=== PATIENT | female | born 1950 | race Two or more races ===

== ENCOUNTER 2016-07-24 20:06 | Inpatient (IN) | payer MEDICARE, MEDICAID ==
[~2016-07-24] VITALS: Ht 160 cm; Wt 68.1 kg
[2016-07-25] VITALS: BP 127/89
[2016-07-25] MEDS ORDERED: MAGNESIUM HYDROXIDE 30 ML UDC PO PRN (00:30)
[2016-07-25] MEDS ORDERED: MAG HYDROX/AL HYDROX/SIMETH 30 ML UDC PO PRN (00:30)
[2016-07-25] MEDS ORDERED: ACETAMINOPHEN 325 MG TABLET PO PRN (00:30)
--- NOTE | 2016-07-25 00:30 | NUR ---
GPS BARKER OPERATOR NOTE: ADMISSION OF A 65YO FEMALE FROM [facility]. PATIENT WAS BROUGHT IN THE UNIT, VIA GURNEY ESCORTED BY EMT STAFF. PATIENT ON 5150 HOLD FOR GD. PER HOLD PATIENT WAS CONFUSED, WITH STORY FRAGMENTED. PATIENT WENT TO ER WITH NO SHOES AND STATED HER BELONGINGS WERE STOLEN FROM HER. THE HOLD ALSO STATES THAT PATIENT IS TANGENTIAL AND THAT SHE HAS MENTAL ILLNESS AND HAS NOT BEEN ON MEDICATIONS SINCE MONDAY. PATIENT IS RAMBLING AND IS UNABLE TO NAVIGATE SAFELY WITHOUT ASSISTANCE IN THE COMMUNITY. PATIENT HAS NO FAMILY OR PERSON TO NOTIFY FOR THE ADMISSION. PATIENT USHERED INTO THE ROOM. PATIENT OBSERVED TO BE ALERT AND ORIENTED X3 WITH NOTED EPISODES OF CONFUSION, UNKEMPT, DISORGANIZED, DISHEVELED, UNTIDY, HYPERVERBAL, ATTENTION SEEKING,TALKS TO SELF AT TIMES, NEEDS REDIRECTION MOST OF THE TIME. REALITY ORIENTATION DONE. VITAL SIGNS CHECKED AND RECORDED. PATIENT IS ABLE TO WALK ON HER OWN. ORIENTATION TO UNIT, STAFF AND CARE PLAN DONE. BELONGINGS AND CONTRABAND CHECKED AND SUBMITTED FOR SAFEKEEPING. SKIN AND BODY ASSESSMENT DONE WITH CARL BAIRES. PICTURES TAKEN AND PLACED IN THE CHART. CHANGED PATIENT INTO A NEW GOWN. PROVIDED PATIENT WITH TOILETRIES AND PERSONAL STUFF NEEDS. SNACKS AND ORAL FLUIDS PROVIDED. Q15 MIN CHECKS INITIATED PER UNIT PROTOCOL. DR. MANDUJANO AND DR. MASON INFORMED OF THE SAID ADMISSION. MED RECON FOR MEDICAL MEDS DONE BY DR. MASON. WILL MONITOR PATIENT FOR MOOD, SAFETY AND BEHAVIOR. WILL ENDORSE TO DAY SHIFT NURSE.
[2016-07-25] MEDS ORDERED: OLAN10TA3 PO (00:55)
[2016-07-25] MEDS ORDERED: LOSA50TA21 PO (00:55)
[2016-07-25 08:00] VITALS: BP 148/84
[2016-07-25] MEDS: LOSARTAN POTASSIUM 50 MG TABLET PO SCH (08:51)
[2016-07-25] MEDS: clonazePAM 0.5 MG TABLET PO PRN (13:04)
--- NOTE | 2016-07-25 13:07 | NUR ---
GPS RN: PATIENT IS INCREASINGLY ANXIOUS, RESTLESS, HYPERVERBAL, WITH EPISODES OF, CONFUSED, HARD TO REDIRECT. ADMINISTERED CLONAZEPAM 0.5MG PO ORDERED. VS STABLE, CONTINUE TO MONITOR.
[2016-07-25 16:00] VITALS: BP 134/82
[2016-07-25 20:15] VITALS: BP 150/90
[2016-07-25] MEDS: OLANZAPINE 10 MG TABLET PO SCH (21:53)
--- NOTE | 2016-07-26 00:30 | NUR ---
GPS RN: PATIENT COMPLAINED OF NAUSEA AND VOMITING PATIENT PLACED ON NPO INITIALLY. CLOSE OBSERVATION ON GI STATUS STARTED. WILL CONTINUE TO MONITOR PATIENT.
--- NOTE | 2016-07-26 03:09 | NUR ---
GPS RN: PATIENT COMPLAINED OF NAUSEA AND VOMITING. NO PAIN, NO ABDOMINAL TENDERNESS THIS TIME OF ASSESSMENT. DR. MASON PAGED AT 0306AM. 0306AM- DR. MASON CALLED BACK WITH ORDERS TO GIVE ZOFRAN 4MG PO Q4H PRN FOR NAUSEA AND VOMITING. ORDER NOTED AND CARRIED OUT. WILL MONITOR PATIENT. WILL ENDORSE PATIENT TO DAY SHIFT NURSE.
[2016-07-26] MEDS ORDERED: ONDANSETRON 4 MG TAB.RAPDIS ONE (03:19)
[2016-07-26] MEDS: ONDANSETRON 4 MG TAB.RAPDIS PO PRN (03:27)
[2016-07-26 08:00] VITALS: BP 103/64
[2016-07-26] MEDS: LOSARTAN POTASSIUM 50 MG TABLET PO SCH (10:06)
--- NOTE | 2016-07-26 12:11 | NUR ---
Initial discharge plan: Pt. states she [address] at [address] [place] [id number] and wants to return when she is discharged. SW will follow up with MD and will attempt to find contact information of support to verify that discharge plan is safe. SW will help form safe and proper discharge.
[2016-07-26 16:00] VITALS: BP 111/73
[2016-07-26 17:08] LABS: BASOPHILS % (AUTO) 0.4 % (0.0-2.0); HEMATOCRIT 36 % (33-45); HEMOGLOBIN 11.8 g/dL (11.5-14.8); LYMPHOCYTES # (AUTO) 1.6 /CMM (0.8-4.8); LYMPHOCYTES % (AUTO) 35.6 % (20.0-44.0); MEAN CORPUSCULAR HEMOGLOBIN 26 PG (26.0-33.0); MEAN CORPUSCULAR HGB CONC 33 g/dl (31.0-36.0); MEAN CORPUSCULAR VOLUME 80 fL (82-100); MONOCYTES # (AUTO) 0.3 /CMM (0.1-1.30); MONOCYTES % (AUTO) 6.8 % (2.0-12.0); NEUTROPHILS # (AUTO) 2.6 /CMM (1.8-8.9); NEUTROPHILS % (AUTO) 57.2 % (43.0-81.0); PLATELET COUNT (AUTO) 223 /CMM (150-450); RDW COEFFICIENT OF VARIATION 13.4 (11.5-15.0); RED BLOOD CELL COUNT(AUTO) 4.53 MIL/uL (4.0-5.2); WHITE BLOOD COUNT (AUTO) 4.6 K/uL (4.3-11.0)
[2016-07-26 17:18] LABS: CALCIUM, SERUM 8.5 mg/dL (8.5-10.1); CREATININE 0.9 mg/dL (0.6-1.3); POTASSIUM 3.7 mmol/L (3.5-5.1)
[2016-07-26 19:56] VITALS: BP 127/81
[2016-07-26] MEDS: OLANZAPINE 10 MG TABLET PO SCH (21:12)
[2016-07-27] MEDS: ONDANSETRON 4 MG TAB.RAPDIS PO PRN (00:04)
[2016-07-27] MEDS: TEMAZEPAM 7.5 MG CAPSULE PO PRN (01:27)
[2016-07-27 08:00] VITALS: BP 114/73
[2016-07-27] MEDS: LOSARTAN POTASSIUM 50 MG TABLET PO SCH (15:46)
[2016-07-27] MEDS: LOPERAMIDE HCL (2 MG CAP) 2 MG CAPSULE PO PRN (15:46)
--- NOTE | 2016-07-27 15:50 | NUR ---
SW met with pt. regarding placement options, but pt. refuses to be placed in a facility and insists on going back home.
[2016-07-27 16:00] VITALS: BP 134/90
--- NOTE | 2016-07-27 16:23 | NUR ---
given immodium for diarrhea.
--- NOTE | 2016-07-27 19:41 | NUR ---
GPS/RN NOTE: AWAKE, ALERT, AMBULATING AT THE HALLWAY. NO APPARENT DISTRESS NOTED. NO COMPLAINTS MADE AT THIS TIME.
[2016-07-27 20:17] VITALS: BP 128/71
[2016-07-27] MEDS ORDERED: OLANZAPINE 10 MG TABLET PO SCH (22:00)
[2016-07-28] MEDS: LOPERAMIDE HCL (2 MG CAP) 2 MG CAPSULE PO PRN (05:03)
--- NOTE | 2016-07-28 05:03 | NUR ---
GPS/RN NOTE: PATIENT STATED THAT SHE HAD ONE DIARRHEA, EXPLAINED TO PATIENT THAT SHE NEDS TO SHOW THE STOOL TO HER NURSE NEXT TIME. LOMOTIL CAP 1 PO GIVEN.
[2016-07-28] MEDS: clonazePAM 0.5 MG TABLET PO PRN (05:07)
--- NOTE | 2016-07-28 05:07 | NUR ---
GPS/RN NOTE: PATIENT FEELING ANXIOUS NOT SLEEPING, FIDGETY, UP AND ABOUT. KLONOPIN 0.5 MG TAB 1 PO GIVEN.
[2016-07-28 08:00] VITALS: BP 124/77
[2016-07-28] MEDS: LOSARTAN POTASSIUM 50 MG TABLET PO SCH (08:20)
[2016-07-28 16:00] VITALS: BP 119/75
[2016-07-28 20:00] VITALS: BP 136/86
[2016-07-28] MEDS ORDERED: OLANZAPINE 10 MG TABLET PO SCH (22:00)
[2016-07-28] MEDS: TEMAZEPAM 7.5 MG CAPSULE PO PRN (22:33)
--- NOTE | 2016-07-29 07:29 | NUR ---
RN-CO: Patient refused Nicotine patch.
[2016-07-29 08:00] VITALS: BP 125/65
[2016-07-29 08:15] VITALS: BP 125/65
[2016-07-29] MEDS: LOSARTAN POTASSIUM 50 MG TABLET PO SCH (08:15)
--- NOTE | 2016-07-29 09:41 | NUR ---
PT. WITH AN ORDER TO D/C HOLD AND D/C HOME. WITHOUT DISTRESS, DENIES SUICIDAL AND HOMICIDAL. TO FOLLOW UP WITH PSYCH AND MEDICAL DOCTORS. DR. FORDE MADE AWARE OF THE DISCHARGE AND OK FOR DISCHARGE AND WROTE A PRESCRIPTION. PICTURES TAKEN FOR THE SKIN ISSUES, BELONGINGS READY. WILL CONTINUE TO MONITOR.
--- NOTE | 2016-07-29 10:55 | NUR ---
PT. LEFT THE UNIT WITH BELONGINGS AND ESCORTED BY STAFF TO THE LOBBY VIA A WHEELCHAIR. WITHOUT DISTRESS AND ON STABLE CONDITION. V/S TAKEN: BP 134/76, GA 78, RR 18, TEMP. 97.8 AND OXYGEN SAT 98%. WAS ADVISED ON MEDS TO CONTINUE AT HOME AND VERBALIZES UNDERSTANDING AND INSTRUCTED TO VISIT HER OUTSIDE PSYCHIATRIST AND MEDICAL DOCTORS AND AGREED. PT. SIGNED THE DISCHARGE PAPERS AND AND PICTURES TAKEN.
--- NOTE | 2016-07-29 15:30 | NUR ---
Discharge note: Discharged back home [address] [facility] [address] via taxi. Pt. was calm and cooperative upon discharge and denied suicidal/homicidal ideations. Pt's mood was normal and appropriate to situation with full range affect. Pt. is a smoker, hence, upon discharge pt. was provided with a referral to Nicotine Anonymous meeting at [address] [facility] Sat 5:00 PM. Pt. will follow up with her primary psychiatrist Dr. Ish Reinoso . SW left a voicemail for Dr. Ish Reinoso's office informing them of pt's discharge and a need for a follow up appointment. Discharge instructions have been provided to the patient and discharge paperwork has been signed.
== END 2016-07-29 10:55 | disposition home or self-care (01) | DRG 885 ==
LOC: GPS 23:48
PROVIDERS: ADMIT Psychiatry & Neurology Psychiatry; ATTEND Nurse Practitioner Acute Care
DX: F31.64 Bipolar disorder, current episode mixed, severe, with psychotic features (principal); G93.40 Encephalopathy, unspecified; I10 Essential (primary) hypertension; F29 Unspecified psychosis not due to a substance or known physiological condition; Z73.6 Limitation of activities due to disability; G31.84 Mild cognitive impairment of uncertain or unknown etiology; F17.210 Nicotine dependence, cigarettes, uncomplicated
CPT/HCPCS: 36415; 80048-TC; 80061-TC; 85025-TC; 87081-TC; 97001-TC; Q0162

== ENCOUNTER 2017-05-11 15:38 | Inpatient (IN) | payer MEDICARE ==
[~2017-05-11] VITALS: Ht 167.6 cm; Wt 64.0 kg
[2017-05-11 14:00] VITALS: BP 150/69
[~2017-05-11 15:38] MED LIST: LOSA50TA21 PO
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
[2017-05-11] MEDS ORDERED: METH-406 PO (16:21)
[2017-05-11] MEDS ORDERED: IBUP-1953 PO (16:21)
[2017-05-11] MEDS ORDERED: BISM262O64 PO (16:21)
[2017-05-11] MEDS ORDERED: LORA0.5T PO (16:21)
[2017-05-11] MEDS ORDERED: NICO2GUM38 BC (16:21)
[2017-05-11] MEDS ORDERED: ACET-868 PO (16:21)
[2017-05-11] MEDS ORDERED: MAG30ORA PO (16:21)
[2017-05-11] MEDS ORDERED: DIPH25CA6 PO (16:21)
[2017-05-11] MEDS ORDERED: MAGN400O6 PO (16:21)
[2017-05-11] MEDS ORDERED: GUAI5SYR PO (16:21)
[2017-05-11] MEDS ORDERED: HYDR50CA PO (16:21)
[2017-05-11] MEDS ORDERED: OLAN5TAB3 PO (16:22)
[2017-05-11] MEDS ORDERED: MAG HYDROX/AL HYDROX/SIMETH 30 ML UDC PO PRN (16:30)
[2017-05-11] MEDS ORDERED: MAGNESIUM HYDROXIDE 30 ML UDC PO PRN (16:30)
[2017-05-11] MEDS ORDERED: ACETAMINOPHEN 325 MG TABLET PO PRN (16:30)
[2017-05-11 20:00] VITALS: BP 122/71
[2017-05-11] MEDS: clonazePAM 0.5 MG TABLET PO PRN (21:43)
--- NOTE | 2017-05-11 23:29 | NUR ---
CALLED DR. HARTMAN FOR MED RECON. AWAITING TO CALLBACK. WILL ENDORSE TO NEXT SHIFT NURSE FOR FOLLOW UP.
[2017-05-12] MEDS: TEMAZEPAM 7.5 MG CAPSULE PO PRN ×2 (00:09→23:15)
[2017-05-12] MEDS ORDERED: ACETAMINOPHEN 325 MG TABLET PO PRN (00:30)
[2017-05-12] MEDS ORDERED: BISMUTH SUBSALICYLATE 262 MG/15 ML BOTTLE PO PRN (00:30)
[2017-05-12] MEDS ORDERED: METHOCARBAMOL (750MG) 750 MG TABLET PO PRN (00:30)
[2017-05-12] MEDS ORDERED: IBUPROFEN 400 MG TABLET PO PRN (00:30)
[2017-05-12] MEDS ORDERED: MAGNESIUM HYDROXIDE 30 ML UDC PO PRN (00:30)
[2017-05-12] MEDS: clonazePAM 0.5 MG TABLET PO PRN ×3 (07:41→21:10)
[2017-05-12 08:00] VITALS: BP 131/92
[2017-05-12] MEDS: LOSARTAN POTASSIUM 50 MG TABLET PO SCH (08:46)
[2017-05-12] MEDS: OLANZAPINE 5 MG/TAB.RAPDIS PO SCH ×2 (10:03→21:11)
--- NOTE | 2017-05-12 10:59 | NUR ---
Initial Discharge Note: Patient states that she resides at [address] [place] [phone] / [phone]. Patient states that she lives with her cousin. Patient states that she recently moved there and that the address on the facesheet is incorrect. Patient is unable to provide any contact information for her cousin. SW to follow up with MD and facilitate safe and proper discharge.
--- NOTE | 2017-05-12 13:50 | NUR ---
GPS RN NOTES PT SCREAMING, YELLING, GETTING UNDRESSED, KLONOPIN 0.5 MG GIVEN PER ORDER. WILL CONTINUE MONITORING FOR SAFETY AND BEHAVIOR
[2017-05-12 16:00] VITALS: BP 111/79
[2017-05-12 20:00] VITALS: BP 134/70
[2017-05-13] MEDS: clonazePAM 0.5 MG TABLET PO PRN ×2 (07:30→20:43)
[2017-05-13 07:37] LABS: CREATININE 0.8 mg/dL (0.6-1.3); POTASSIUM 4.2 mmol/L (3.5-5.1)
[2017-05-13 08:03] VITALS: BP 152/90
[2017-05-13] MEDS: OLANZAPINE 5 MG/TAB.RAPDIS PO SCH ×2 (08:35→22:40)
[2017-05-13] MEDS: LOSARTAN POTASSIUM 50 MG TABLET PO SCH (08:35)
[2017-05-13 09:37] LABS: BILIRUBIN,TOTAL 0.3 mg/dL (0.2-1.0)
[2017-05-13 09:38] LABS: ALBUMIN 3.7 g/dL (3.4-5.0); TOTAL PROTEIN, SERUM 8.2 g/dL (6.4-8.2)
[2017-05-13 15:17] LABS: CALCIUM, SERUM 9.4 mg/dL (8.5-10.1)
[2017-05-13 15:44] VITALS: BP 125/85
[2017-05-13 20:00] VITALS: BP 137/89
[2017-05-13] MEDS: TEMAZEPAM 7.5 MG CAPSULE PO PRN (22:41)
[2017-05-14 08:40] VITALS: BP 143/97
[2017-05-14] MEDS: LOSARTAN POTASSIUM 50 MG TABLET PO SCH (08:48)
[2017-05-14] MEDS: OLANZAPINE 5 MG/TAB.RAPDIS PO SCH ×2 (08:48→22:40)
[2017-05-14] MEDS: clonazePAM 0.5 MG TABLET PO PRN (08:50)
--- NOTE | 2017-05-14 08:50 | NUR ---
[id number]: GAVE KLONOPIN 0.5 MG PO DUE SEVERE ANXIETY UPON PT REQUEST AND WILL CONTINUE TO MONITOR FOR EFFECTIVENESS OF MEDICATION
[2017-05-14 16:00] VITALS: BP 105/60
[2017-05-14 19:35] VITALS: BP 129/64
[2017-05-15] MEDS: TEMAZEPAM 7.5 MG CAPSULE PO PRN ×2 (01:28→22:09)
[2017-05-15 08:00] VITALS: BP 131/85
[2017-05-15] MEDS: LOSARTAN POTASSIUM 50 MG TABLET PO SCH (08:20)
[2017-05-15] MEDS: clonazePAM 0.5 MG TABLET PO PRN (08:20)
[2017-05-15] MEDS: OLANZAPINE 5 MG/TAB.RAPDIS PO SCH ×2 (08:20→16:29)
--- NOTE | 2017-05-15 08:20 | NUR ---
[id number]: GAVE KLONOPIN 0.5 MG PO DUE TO SEVERE ANXIETY UPON PT REQUEST AND WILL CONTINUE TO MONITOR FOR EFFECTIVENESS OF MEDICATION
--- NOTE | 2017-05-15 14:49 | NUR ---
Discharge planning: SW spoke to patient in an attempt to obtain information about patient's family / current residence. Patient provided SW with a number for her [id number], [employer] [phone] and asked SW to call Olimpia and inform her that patient was at the hospital. GURPREET called and left a voicemail for O[employer]pia with her direct contact information.
[2017-05-15 16:00] VITALS: BP 131/73
[2017-05-15 19:54] VITALS: BP 111/68
[2017-05-16 07:56] VITALS: BP 154/100
[2017-05-16] MEDS: OLANZAPINE 5 MG/TAB.RAPDIS PO SCH ×3 (08:02→16:55)
[2017-05-16] MEDS: LOSARTAN POTASSIUM 50 MG TABLET PO SCH (08:02)
[2017-05-16 16:00] VITALS: BP 131/88
--- NOTE | 2017-05-16 19:30 | NUR ---
GPS RN NOTE, RECEIVED PATIENT AWAKE AND IN BED, NO S/S OR COMPLAINTS OF PAIN AT THIS TIME. PATIENT IS DISPLAYING NO S/S OF APPARENT DISTRESS AT THIS TIME. PATIENT BREATHING IS UNLABORED WITH EQUAL RISE AND FALL OF THE CHEST. PATIENT IS ALERT AND ORIENTED X 2 ON ROOM AIR WITH A SPO2 99%. PATIENT IS MED COMPLIANT, DISORGANIZED, ANXIOUS, CONFUSED AT TIMES, COOPERATIVE, AND NEEDS REORIENTATION. PATIENT DENIES SUICIDE IDEATIONS AND HOMICIDAL IDEATIONS AT THIS TIME. PATIENT ASSISTED WITH TURNING AND REPOSITIONING Q2HR AND PRN FOR COMFORT AND CIRCULATION. PATIENT HAS NO NEEDS AT THIS TIME. PATIENT EDUCATED ON THE USE OF THE CALL WHEATLEY. PATIENT BED SIDE RAILS ARE UP X 2 FOR SAFETY, BED IS LOCKED AND LOW WILL CONTINUE TO MONITOR Q 15 MIN AND MAINTAIN SAFETY WITH THE HELP OF STAFF.
[2017-05-16 19:55] VITALS: BP 128/90
[2017-05-17 08:00] VITALS: BP 120/72
[2017-05-17] MEDS: LOSARTAN POTASSIUM 50 MG TABLET PO SCH (09:06)
[2017-05-17] MEDS: OLANZAPINE 5 MG/TAB.RAPDIS PO SCH ×3 (09:07→17:32)
[2017-05-17 16:00] VITALS: BP 125/72
[2017-05-17 20:00] VITALS: BP 130/82
[2017-05-17 20:11] VITALS: BP 130/82
[2017-05-18 08:00] VITALS: BP 141/78
[2017-05-18] MEDS: OLANZAPINE 5 MG/TAB.RAPDIS PO SCH ×3 (08:31→16:24)
[2017-05-18] MEDS: LOSARTAN POTASSIUM 50 MG TABLET PO SCH (08:32)
[2017-05-18 13:52] LABS: BASOPHILS # (AUTO) 0.1 /CMM (0.0-0.2); BASOPHILS % (AUTO) 0.7 % (0.0-2.0); EOSINOPHILS % (AUTO) 0.1 % (0.0-6.0); HEMATOCRIT 35 % (33-45); HEMOGLOBIN 11.7 g/dL (11.5-14.8); LYMPHOCYTES # (AUTO) 3.5 /CMM (0.8-4.8); LYMPHOCYTES % (AUTO) 45.5 % (20.0-44.0); MEAN CORPUSCULAR HEMOGLOBIN 27 PG (26.0-33.0); MEAN CORPUSCULAR HGB CONC 33 g/dl (31.0-36.0); MEAN CORPUSCULAR VOLUME 82 fL (82-100); MONOCYTES # (AUTO) 0.6 /CMM (0.1-1.30); MONOCYTES % (AUTO) 7.2 % (2.0-12.0); NEUTROPHILS # (AUTO) 3.5 /CMM (1.8-8.9); NEUTROPHILS % (AUTO) 46.5 % (43.0-81.0); PLATELET COUNT (AUTO) 241 /CMM (150-450); RDW COEFFICIENT OF VARIATION 14.5 (11.5-15.0); WHITE BLOOD COUNT (AUTO) 7.6 K/uL (4.3-11.0)
[2017-05-18 14:07] LABS: CALCIUM, SERUM 8.6 mg/dL (8.5-10.1); CREATININE 0.8 mg/dL (0.6-1.3); MAGNESIUM 2.1 mg/dL (1.8-2.4); PHOSPHORUS 4.1 mg/dL (2.5-4.9); POTASSIUM 4.2 mmol/L (3.5-5.1)
--- NOTE | 2017-05-18 14:30 | NUR ---
Discharge Planning: GURPREET called and spoke with patient's roommate, Maryjo [phone] / [phone]. Maryjo stated that she is happy to have her roommate back and that she will help arrange transportation for patient. Maryjo stated that she has known the patient for 20 years and can manage her well.
[2017-05-18 15:43] VITALS: BP 114/66
[2017-05-18 20:00] VITALS: BP 123/68
[2017-05-19 08:00] VITALS: BP 135/96
[2017-05-19 08:06] VITALS: BP 135/96
[2017-05-19] MEDS: LOSARTAN POTASSIUM 50 MG TABLET PO SCH (08:06)
[2017-05-19] MEDS: OLANZAPINE 5 MG/TAB.RAPDIS PO SCH ×2 (08:06→13:00)
--- NOTE | 2017-05-19 09:24 | NUR ---
DR. MANDUJANO GAVE AN ORDER TO D/C HOLD AND D/C HOME TODAY AND TO FOLLOW UP WITH PSYCH AND MEDICAL DOCTORS.
--- NOTE | 2017-05-19 10:15 | NUR ---
GPS/RN PT IS THREATENING TO [facility] SHE DOES NOT HAVE HER PANTS AND SHIRT. NOTHING IS FOUND IN CONTRABAND CABINET NOR IN PT'S DRAWERS.
--- NOTE | 2017-05-19 10:53 | NUR ---
Discharge Planning: GURPREET spoke with patient's roommate, Maryjo [phone] / [phone] who stated that she had attempted to arrange transportation, but was unable to do so. GURPREET spoke with Maryjo and with patient about any other options, but none were presented. GURPREET consulted with survey supervisor and arranged transportation through [employer], .
--- NOTE | 2017-05-19 10:55 | NUR ---
Discharge Note: Patient will be discharged home with her [address]mate to [address] [place] [address] / [phone]. Patients roommate, Maryjo [phone] / [phone], is aware and agreeable with discharging, stating that she would love to have her back. Patient to be transported via [employer], . Upon discharge, patient is alert and oriented x4. Patient denies suicidal and homicidal ideation. Patient denies visual and auditory hallucinations. Patient was referred to [facility] [address] [facility] to see an web operations specialist. Patient will see her psychiatrist, Dr. Ish Reinoso, [address] [place] [id number] [phone] on June 01 at 2pm.
--- NOTE | 2017-05-19 13:35 | NUR ---
GPS/RN PT VOICED NO SI OR HI AT THE TIME OF DISCHARGE.VSS. SKIN INTACT ON DISCHARGE. NO ACUTE DISTRESS NOTED PT IS AMBULATORY AND SELF CARE. CLOTHING WAS ARRANGED FOR THE PT AND PT SIGN BELONGINGS LIST. PRESCRIPTIONS /EXIT CARE GIVEN AND UNDERSTOOD. ID BAND REMOVED. PT LEFT HOME VIA TAXI WITH VOUCHER PROVIDED to [address] [place] [address] / [phone].
== END 2017-05-19 13:15 | disposition home or self-care (01) | DRG 885 ==
LOC: GPS 15:38
PROVIDERS: ADMIT Psychiatry & Neurology Psychiatry; ATTEND Nurse Practitioner Acute Care
DX: F29 Unspecified psychosis not due to a substance or known physiological condition (principal); F03.90 Unspecified dementia, unspecified severity, without behavioral disturbance, psychotic disturbance, mood disturbance, and anxiety; F20.9 Schizophrenia, unspecified; E78.5 Hyperlipidemia, unspecified; F17.200 Nicotine dependence, unspecified, uncomplicated; F41.9 Anxiety disorder, unspecified; I10 Essential (primary) hypertension; Z73.6 Limitation of activities due to disability; F31.9 Bipolar disorder, unspecified
CPT/HCPCS: 36415; 80048-TC; 80053-TC; 80061-TC; 83735-TC; 84100-TC; 85025-TC; Z7610

== ENCOUNTER 2018-01-28 03:04 | Inpatient (IN) | payer MEDICARE, MEDICAID ==
[~2018-01-28] VITALS: Ht 165.1 cm; Wt 70.8 kg
[2018-01-28 03:20] VITALS: BP 136/73
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
[2018-01-28] MEDS ORDERED: MAG HYDROX/AL HYDROX/SIMETH 30 ML UDC PO PRN (04:30)
[2018-01-28] MEDS ORDERED: MAGNESIUM HYDROXIDE 30 ML UDC PO PRN (04:30)
[2018-01-28 08:00] VITALS: BP 97/61
[2018-01-28 16:00] VITALS: BP 114/67
--- NOTE | 2018-01-28 19:30 | NUR ---
GPS RN NOTE, RECEIVED PATIENT AWAKE AND IN BED, NO S/S OR COMPLAINTS OF PAIN AT THIS TIME. PATIENT IS DISPLAYING NO S/S OF APPARENT DISTRESS AT THIS TIME. PATIENT BREATHING IS UNLABORED WITH EQUAL RISE AND FALL OF THE CHEST. PATIENT IS ALERT AND ORIENTED X 1 -2 ON ROOM AIR WITH A SPO2 OF 99%. PATIENT IS MED COMPLIANT, DISORGANIZED, CONFUSED AT TIMES, HYPERVERBAL, AND NEEDS REDIRECTION. PATIENT DENIES SUICIDE IDEATIONS AND HOMICIDAL IDEATIONS AT THIS TIME. PATIENT ASSISTED WITH TURNING AND REPOSITIONING Q 2HRS AND PRN FOR COMFORT AND CIRCULATION. PATIENT HAS NO NEEDS AT THIS TIME. PATIENT EDUCATED ON THE USE OF THE CALL WHEATLEY. PATIENT BED SIDE RAILS UP X 2 FOR SAFETY, BED IS LOCKED, LOW, AND I WILL CONTINUE TO MONITOR AND MAINTAIN SAFETY Q15 MIN WITH THE HELP OF STAFF.
[2018-01-28 20:00] VITALS: BP 120/72
[2018-01-28] MEDS: OLANZAPINE 5 MG TABLET PO SCH (22:32)
[2018-01-29 00:15] LABS: APPEARANCE,URINE CLEAR (CLEAR); BILIRUBIN,URINE NEGATIVE (NEGATIVE); BLOOD, URINE TRACE Ery/uL (NEGATIVE); COLOR,URINE OTHER (YELLOW); KETONES,URINE NEGATIVE (NEGATIVE); LEUKOCYTE ESTERASE ,URINE NEGATIVE (NEGATIVE); NITRITE, URINE NEGATIVE (NEGATIVE); PROTEIN,URINE NEGATIVE (NEGATIVE); UGLUCOSE NEGATIVE (NEGATIVE); UROBILINOGEN,URINE 0.2 EU/dL (0.2)
[2018-01-29 00:19] LABS: BACTERIA,URINE Rare /HPF (None Seen); RBC,URINE 0-2 /HPF (0-2); WBC,URINE 0-2 /HPF (0-3)
[2018-01-29 00:20] LABS: SQUAMOUS EPITHELIAL CELL,UR Rare /HPF (None Seen)
[2018-01-29 07:12] LABS: BASOPHILS % (AUTO) 0.4 % (0.0-2.0); HEMATOCRIT 34 % (33-45); HEMOGLOBIN 10.8 g/dL (11.5-14.8); LYMPHOCYTES # (AUTO) 2.9 /CMM (0.8-4.8); LYMPHOCYTES % (AUTO) 42.7 % (20.0-44.0); MEAN CORPUSCULAR HGB CONC 32 g/dl (31.0-36.0); MEAN CORPUSCULAR VOLUME 82 fL (82-100); MONOCYTES # (AUTO) 0.6 /CMM (0.1-1.30); MONOCYTES % (AUTO) 8.3 % (2.0-12.0); NEUTROPHILS # (AUTO) 3.3 /CMM (1.8-8.9); NEUTROPHILS % (AUTO) 48.6 % (43.0-81.0); PLATELET COUNT (AUTO) 218 /CMM (150-450); RDW COEFFICIENT OF VARIATION 14.1 (11.5-15.0); RED BLOOD CELL COUNT(AUTO) 4.09 MIL/uL (4.0-5.2); WHITE BLOOD COUNT (AUTO) 6.7 K/uL (4.3-11.0)
[2018-01-29 07:26] LABS: CHOLESTEROL 139 mg/dL (<200); HDL CHOLESTEROL 66 mg/dL (40-60); LDL 67 mg/dL (0-99); TRIGLYCERIDES 52 mg/dL (30-150)
[2018-01-29 07:28] LABS: ALBUMIN 3.4 g/dL (3.4-5.0); BILIRUBIN,TOTAL 0.4 mg/dL (0.2-1.0); CALCIUM, SERUM 8.7 mg/dL (8.5-10.1); CREATININE 0.8 mg/dL (0.6-1.3); POTASSIUM 3.7 mmol/L (3.5-5.1); TOTAL PROTEIN, SERUM 7.8 g/dL (6.4-8.2)
[2018-01-29] MEDS: OLANZAPINE 5 MG TABLET PO SCH ×2 (08:04→16:04)
[2018-01-29 09:35] VITALS: BP 143/95
[2018-01-29] MEDS: ACETAMINOPHEN 325 MG TABLET PO PRN (15:58)
--- NOTE | 2018-01-29 16:04 | NUR ---
Per pts request SW contacted [facility] Address: [address] [facility], [place] [address] to inform them pt was currently hospitalized. GURPREET left a voicemail in women's unit. GURPREET will call again tomorrow.
[2018-01-29 16:52] VITALS: BP 124/96
[2018-01-29] MEDS: LORAZEPAM 0.5 MG TABLET PO PRN (20:30)
[2018-01-29 20:51] VITALS: BP 126/94
[2018-01-30 08:00] VITALS: BP 150/89
[2018-01-30] MEDS: OLANZAPINE 5 MG TABLET PO SCH ×2 (09:31→16:30)
--- NOTE | 2018-01-30 10:30 | NUR ---
Per pts request SW contacted Amarilys, coordinator at [facility] Address: [address] [facility], [place] [address] to inform her pt was currently hospitalized. Amarilys stated pts bed will be saved and is able to return when discharged.
--- NOTE | 2018-01-30 10:59 | NUR ---
INITIAL DISCHARGE PLAN: Patient wishes to return to [facility] Address: [address] [facility], [place] [address] . GURPREET spoke with Amarilys, coordinator at [facility] who stated pts bed will not be given away and is able to return when discharged. GURPREET will help form a safe and proper discharge in collaboration with pt and MD.
[2018-01-30 16:13] VITALS: BP 116/70
[2018-01-30 21:09] VITALS: BP 140/83
[2018-01-30] MEDS: TEMAZEPAM 15 MG CAPSULE PO PRN (21:25)
[2018-01-31] MEDS ORDERED: LORAZEPAM INJ 2 MG/ML VIAL IV ONE (02:30)
[2018-01-31] MEDS ORDERED: diphenhydrAMINE HCL 50 MG/ML VIAL IM ONE (02:30)
[2018-01-31] MEDS ORDERED: HALOPERIDOL LACTATE INJ 5 MG/ML VIAL IM ONE (02:30)
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
[2018-01-31 08:00] VITALS: BP 118/76
[2018-01-31] MEDS: DIVALPROEX SODIUM 250 MG TABLET.DR PO SCH ×3 (09:00→16:50)
[2018-01-31] MEDS: OLANZAPINE 5 MG TABLET PO SCH ×2 (09:14→16:50)
--- NOTE | 2018-01-31 11:06 | NUR ---
WOUND CARE CONSULT: PT PRESENTS AMBULATORY AND CONTINENT. PT HAS LEFT CALF SKIN TEAR, PRESENT ON ADMISSION. RECOMMENDATIONS MADE FOR WOUND CARE AND DISCUSSED WITH NURSING STAFF. WILL SEE PRN. HUNG IN AGREEMENT WITH PLAN OF CARE.
[2018-01-31] MEDS: BACITRACIN/POLYMYXIN B 15 GM TUBE TP SCH (14:16)
[2018-01-31 16:00] VITALS: BP 120/68
[2018-01-31 20:04] VITALS: BP 151/82
[2018-01-31] MEDS ORDERED: DIVALPROEX SODIUM 250 MG TABLET.DR PO SCH (21:00)
[2018-01-31] MEDS: LORAZEPAM 0.5 MG TABLET PO PRN (21:42)
[2018-02-01] MEDS: ACETAMINOPHEN 325 MG TABLET PO PRN (04:43)
[2018-02-01 08:00] VITALS: BP 150/85
[2018-02-01] MEDS: NICOTINE PATCH (14MG) 14 MG PATCH.TD24 TD SCH (08:36)
[2018-02-01] MEDS: DIVALPROEX SODIUM 250 MG TABLET.DR PO SCH ×3 (08:36→17:00)
[2018-02-01] MEDS: OLANZAPINE 5 MG TABLET PO SCH ×2 (08:36→17:40)
[2018-02-01] MEDS: BACITRACIN/POLYMYXIN B 15 GM TUBE TP SCH (08:42)
[2018-02-01 17:45] VITALS: BP 152/95
[2018-02-01 20:00] VITALS: BP 145/79
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
[2018-02-01] MEDS: OLANZAPINE 10 MG TABLET PO SCH (21:19)
--- NOTE | 2018-02-01 21:50 | NUR ---
[id number] RESTORIL 7.5MG PO. PT STATES ''I'M NOT TAKING SLEEPING PILLS". WILL CONTINUE TO MONITOR.
[2018-02-02 08:00] VITALS: BP 144/94
[2018-02-02] MEDS: OLANZAPINE 5 MG TABLET PO SCH (08:36)
[2018-02-02] MEDS: DIVALPROEX SODIUM 250 MG TABLET.DR PO SCH ×3 (08:36→16:45)
[2018-02-02] MEDS: NICOTINE PATCH (14MG) 14 MG PATCH.TD24 TD SCH (08:36)
[2018-02-02] MEDS: BACITRACIN/POLYMYXIN B 15 GM TUBE TP SCH (12:13)
[2018-02-02 16:00] VITALS: BP 145/99
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
[2018-02-02 20:00] VITALS: BP 134/84
[2018-02-02] MEDS: OLANZAPINE 10 MG TABLET PO SCH (21:41)
--- NOTE | 2018-02-02 22:55 | NUR ---
OFFERED RESTORIL ( SLEEPING PILL ) TO THE PT , BUT PT DOESN'T WANT ANY SLEEPING PILL AT THIS TIME, RISK AND BENEFITS EXPLAINED. PT STILL DOESN'T WANT SLEEPING PILL
[2018-02-03] MEDS: ACETAMINOPHEN 325 MG TABLET PO PRN ×2 (00:50→23:31)
--- NOTE | 2018-02-03 01:30 | NUR ---
OFFERED RESTORIL TO THE PT, BUT PT STILL DOESN'T WANT ANY SLEEPING PILL AT THIS TIME, RISK AND BENEFITS EXPLAINED. PT STILL DOESN'T WANT IT
[2018-02-03 08:00] VITALS: BP 145/94
[2018-02-03] MEDS: DIVALPROEX SODIUM 250 MG TABLET.DR PO SCH ×3 (09:00→17:00)
[2018-02-03] MEDS: NICOTINE PATCH (14MG) 14 MG PATCH.TD24 TD SCH (09:27)
[2018-02-03] MEDS: OLANZAPINE 5 MG TABLET PO SCH (09:27)
[2018-02-03] MEDS: BACITRACIN/POLYMYXIN B 15 GM TUBE TP SCH (09:31)
--- NOTE | 2018-02-03 14:40 | NUR ---
PT. IS CALM ,COOPERATIVE AND FOLLOWS DIRECTION. DR. SAVAGE ORDERED TO D/C 1:1.
--- NOTE | 2018-02-03 15:27 | NUR ---
RN NOTE: ADONIS LOOKED AT PATIENTS LEFT LEG WOUND. REPORTED THAT IT HAD NO SIGNS OF INFECTION AND TO CONT CURRENT WOUND CARE TREATMENT.
[2018-02-03 16:05] VITALS: BP 129/91
[2018-02-03 20:00] VITALS: BP 128/80
[2018-02-03] MEDS: OLANZAPINE 10 MG TABLET PO SCH (21:15)
[2018-02-03] MEDS: TEMAZEPAM 15 MG CAPSULE PO PRN (22:13)
[2018-02-04] MEDS: DIVALPROEX SODIUM 250 MG TABLET.DR PO SCH ×3 (08:22→17:47)
[2018-02-04] MEDS: NICOTINE PATCH (14MG) 14 MG PATCH.TD24 TD SCH (08:22)
[2018-02-04] MEDS: LORAZEPAM 0.5 MG TABLET PO PRN ×2 (08:22→12:48)
[2018-02-04] MEDS: BACITRACIN/POLYMYXIN B 15 GM TUBE TP SCH (08:23)
[2018-02-04] MEDS: OLANZAPINE 5 MG TABLET PO SCH (08:23)
[2018-02-04 08:26] VITALS: BP 130/78
[2018-02-04 16:00] VITALS: BP 120/57
[2018-02-04 20:00] VITALS: BP 128/68
[2018-02-04] MEDS: OLANZAPINE 10 MG TABLET PO SCH (21:53)
--- NOTE | 2018-02-05 00:01 | NUR ---
RN NOTES PT IS NOT SLEEPING, OFFERED SLEEPING PILLS TWICE. PT STATED, "I WILL LET YOU KNOW IF I NEED IT."
[2018-02-05] MEDS: ACETAMINOPHEN 325 MG TABLET PO PRN (02:04)
--- NOTE | 2018-02-05 02:04 | NUR ---
TYLENOL 650 MG TAB PO GIVEN FOR HEADACHE
[2018-02-05 08:00] VITALS: BP 135/75
[2018-02-05] MEDS: DIVALPROEX SODIUM 250 MG TABLET.DR PO SCH ×3 (08:37→17:27)
[2018-02-05] MEDS: NICOTINE PATCH (14MG) 14 MG PATCH.TD24 TD SCH (08:37)
[2018-02-05] MEDS: OLANZAPINE 5 MG TABLET PO SCH (08:37)
[2018-02-05] MEDS: BACITRACIN/POLYMYXIN B 15 GM TUBE TP SCH (09:00)
[2018-02-05 16:00] VITALS: BP 124/73
[2018-02-05 20:16] VITALS: BP 107/71
[2018-02-05] MEDS: OLANZAPINE 10 MG TABLET PO SCH (21:09)
[2018-02-05] MEDS: TEMAZEPAM 15 MG CAPSULE PO PRN (22:37)
[2018-02-06] MEDS: ACETAMINOPHEN 325 MG TABLET PO PRN (00:59)
[2018-02-06 08:25] VITALS: BP 116/82
[2018-02-06] MEDS: DIVALPROEX SODIUM 250 MG TABLET.DR PO SCH (08:50)
[2018-02-06] MEDS: OLANZAPINE 5 MG TABLET PO SCH (08:50)
[2018-02-06] MEDS: NICOTINE PATCH (14MG) 14 MG PATCH.TD24 TD SCH (08:50)
[2018-02-06] MEDS: BACITRACIN/POLYMYXIN B 15 GM TUBE TP SCH (08:51)
--- NOTE | 2018-02-06 13:05 | NUR ---
[id number]: PT IS 67 YEARS OLD FEMALE DISCHARGE TO [facility]ATED [address] [place]. [address] IN STABLE CONDITION. PT IS ALERT AND ORIENTED X3, WITHOUT CONFUSION OR DISORIENTATION. COMPLIANT WITH MEDICATIONS, COOPERATIVE WITH TREATMENT PLANS. PT DENIES SI/HI AND INSTRUCTED TO GO TO THE CLOSEST ER IF DEVELOPING SI/HI. BEHAVIOR IMPROVED, PSYCHIATRIC TX PLANS MET, MEDICAL TX PLANS DEFERRED FOR CONTINUAL MONITORING. EDUCATED PT ABOUT AFTER CARE PLAN AND COPY PROVIDED. RETURNED BELONGINGS TO PT. MEDICATIONS RECONCILED WITH DR. KURTZ AND DR. ANUSHA HARTMAN. PT SIGNED DISCHARGE PAPERWORK. SKIN ASSESSMENT DONE. PT LEFT THE UNIT VIA PUBLIC TRANSPORTATION. ACCOMPANIED BY STAFF TO THE BUS STOP.
--- NOTE | 2018-02-06 14:02 | NUR ---
DISCHARGE NOTE: Pt was discharged at 1:00pm to [facility] Address: [address] [place] [address] via public transportation. Pts mood was euphoric with congruent affect. Pt denied suicidal/homicidal ideations and denied visual/auditory hallucinations. Pt was given referrals to [facility] [address] [facility] [id number] and [facility] [address] [place] [phone] . The multidisciplinary exitcare form was done, printed, signed, and given to the patient. Addendum: 02/06/18 at 1505 by SCOTTIE VÁZQUEZ For smoking cessation, patient was referred to the [employer] or [employer] [id number].
== END 2018-02-06 13:05 | disposition home or self-care (01) | DRG 885 ==
LOC: GPS 03:04
PROVIDERS: ADMIT Psychiatry & Neurology Psychiatry; ATTEND Internal Medicine
DX: F31.2 Bipolar disorder, current episode manic severe with psychotic features (principal); N17.0 Acute kidney failure with tubular necrosis; I10 Essential (primary) hypertension; E78.5 Hyperlipidemia, unspecified; Z59.0 Homelessness; Z73.6 Limitation of activities due to disability; F29 Unspecified psychosis not due to a substance or known physiological condition; S81.812A Laceration without foreign body, left lower leg, initial encounter; X58.XXXA Exposure to other specified factors, initial encounter; Y93.9 Activity, unspecified; Y92.9 Unspecified place or not applicable
CPT/HCPCS: 36415; 80053-TC; 80061-TC; 80164-TC; 81000-TC; 85025-TC; 87081-TC; J1200; J1630; J2060

== ENCOUNTER 2020-10-21 01:06 | Inpatient (IN) | payer MEDICARE, OTHER ==
[~2020-10-21] VITALS: Ht 162.6 cm; Wt 67.1 kg
[2020-10-21] MEDS ORDERED: ACETAMINOPHEN 325 MG TABLET PO PRN (04:30)
[2020-10-21] MEDS ORDERED: BLOOD SUGAR DIAGNOSTIC 1 EACH STRIP IN ONE (04:30)
[2020-10-21] MEDS ORDERED: MAG HYDROX/AL HYDROX/SIMETH 30 ML UDC PO PRN (04:30)
[2020-10-21] MEDS ORDERED: MAGNESIUM HYDROXIDE 30 ML UDC PO PRN (04:30)
[2020-10-21] MEDS ORDERED: TEMAZEPAM 7.5 MG CAPSULE PO PRN (04:30)
[2020-10-21 05:18] VITALS: BP 162/92
--- NOTE | 2020-10-21 05:19 | NUR ---
GPS FOREIGN LANGUAGE PROFESSOR NOTES: RECEIVED PATIENT FROM [facility] ORIGINALLY FROM HOME. PATIENT ARRIVED ON THIS UNIT AT 0405 VIA STRETCHER WITH 2 EMT ESCORT. PATIENT ADMITTED ON A 5150 HOLD FOR DTO AND GD, HOLD WAS PLACED ON 10/21/20 @ 2330. PER HOLD PATIENT PRESENTS TO [place] [facility] WITH C/O LOWER BACK PAIN THEN BECAME MANIC, DELUSIONAL, UNCOOPERATIVE, RAMBLING, DISORGANIZED AND AGGRESSIVE TOWARDS STAFF. PATIENT WAS ALSO TALKING ABOUT HER CHILDREN BEING TAKEN AWAY FROM HER. PATIENT WAS PUT ON RESTRAINT AND HALDOL 5MG IM AND ATIVAN 2MG X2 IM ADMINISTERED THEN PLACED ON HOLD FOR DTO AND GD BECAUSE PATIENT WAS ALSO UNABLE TO FORMULATE A COHERENT PLAN OF CARE FOR HERSELF. UPON FACE TO FACE EVALUATION, PATIENT IS A/O X2, APPEARS DEPRESSED, FLAT AFFECT, APPEARS TIRED, ANXIOUS, DISHEVELED, DISORGANIZED, PARANOID, AND SUSPICIOUS. PER PATIENT "I DON'T TRUST YOU GUYS, WHERE IS MY MONEY", THEN CALM DOWN AFTER SHE WAS SHOWN ALL HER BELONGINGS. NO S/S OF DISTRESS. RESPIRATION EVEN AND UNLABORED WITH EQUAL RISE AND FALL OF THE CHEST, ON ROOM AIR. DENIES SI AT THIS TIME. DENIES ANY PAIN AT THIS TIME. ACCU CHEK DONE, BS 81MG/DL. OFFERED SNACKS AND JUICE. PATIENT REFUSED TO SIGN ADMISSION PAPERWORK D/T TIREDNESS. PATIENT ADVISED OF HER HOLD AND PATIENT RIGHT HANDBOOK AND A GUIDE TO PRESCRIPTION MEDICATION BOOKLET GIVEN. PATIENT IS UNDER THE PSYCHIATRIC CARE OF DR KURTZ AND MEDICAL CARE OF ALETHEA. PATIENT BELONGINGS WERE INVENTORIED AND CHECKED FOR CONTRABAND. CONTRABAND REMOVED AND STORED IN PATIENT HALLWAY LOCKER. PATIENT ADVANCE DIRECTIVES PREFERENCES, IMMUNIZATIONS QUESTIONER NECESSARY PAPERWORK COMPLETED. PATIENT SKIN ASSESSMENT COMPLETED, SKIN INTACT. PATIENT ORIENTED TO ROOM, FLOOR, AND STAFF WITH ALL PATIENT QUESTIONS ANSWERED. PATIENT EDUCATED ON THE USE OF CALL WHEATLEY. PATIENT BED SIDE RAILS UP X2 FOR SAFETY. PATIENT BED IS LOCKED AND IN LOWEST POSITION. ALL PATIENT NEEDS HAVE BEEN MET AT THIS TIME. PATIENT IS CURRENTLY SLEEPING COMFORTABLY IN BED. WILL CONTINUE TO MONITOR Q15 FOR SAFETY, MOOD AND BEHAVIOR.
[2020-10-21] MEDS ORDERED: FLUO10CA29 PO (05:49)
[2020-10-21] MEDS ORDERED: OLAN2.5T3 PO (05:49)
[2020-10-21] MEDS ORDERED: RISP0.5T5 PO (05:49)
[2020-10-21 08:00] VITALS: BP 136/82
--- NOTE | 2020-10-21 12:41 | NUR ---
Initial Discharge plan: The pt. resides at [[facility] [place] [address] [facility] [address]; [phone]] alone. Pt. stated she would like to return there once ready for discharge. SW will continue to collaborate with IDT to ensure safe & proper D/C planning.
--- NOTE | 2020-10-21 12:42 | NUR ---
Pt. refused family involvement: Patient provided her sister, Hellen Aguilar [phone] as an emergency contact. However, she refused for family to be contacted regarding her admission to [facility]. Pt. stated she has 1 son, Shyam Castillo and refused to provided his contact information.
[2020-10-21 16:00] VITALS: BP 150/90
[2020-10-21 20:13] VITALS: BP 142/54
[2020-10-22 07:27] LABS: CHOLESTEROL 153 mg/dL (<200); HDL CHOLESTEROL 67 mg/dL (40-60); LDL 72 mg/dL (0-99); TRIGLYCERIDES 34 mg/dL (30-150)
[2020-10-22 07:29] LABS: ALBUMIN 3.6 g/dL (3.4-5.0); BILIRUBIN,TOTAL 0.6 mg/dL (0.2-1.0); CALCIUM, SERUM 8.7 mg/dL (8.5-10.1); CREATININE 0.7 mg/dL (0.6-1.3); POTASSIUM 4.4 mmol/L (3.5-5.1); TOTAL PROTEIN, SERUM 7.4 g/dL (6.4-8.2)
[2020-10-22 08:00] VITALS: BP 159/87
[2020-10-22 16:00] VITALS: BP 148/92
--- NOTE | 2020-10-22 18:20 | NUR ---
RN note - Patient is A/ox2, in no acute distress, interacts with others, participates in group, pleasant. Occasionally asks for her belongings/money, patient reoriented. Safety checks done q 15 min, all needs met, will continue to monitor. Needs to be seen by Dr. Valadez.
[2020-10-22] MEDS: LORAZEPAM 0.5 MG TABLET PO PRN (20:39)
--- NOTE | 2020-10-22 20:40 | NUR ---
RN NOTES: ANXIETY PT. C/O FEELING ANXIOUS, PARANOID,HYPERVERBAL , ATIVAN 0.5 MG PO PRN GIVEN PER PT. REQUEST, WILL CONTINUE TO MONITOR.
[2020-10-22 20:53] VITALS: BP 146/92
[2020-10-22] MEDS: OLANZAPINE 10 MG TABLET PO SCH (21:53)
[2020-10-23 08:00] VITALS: BP 156/98
[2020-10-23] MEDS: OLANZAPINE 5 MG TABLET PO SCH (08:12)
[2020-10-23] MEDS: DIVALPROEX SODIUM 250 MG TABLET.DR PO SCH ×3 (08:12→16:37)
[2020-10-23] MEDS: LORAZEPAM 0.5 MG TABLET PO PRN (15:11)
[2020-10-23 16:00] VITALS: BP 150/89
--- NOTE | 2020-10-23 20:00 | NUR ---
RN NOTES ALERT/ORIENTED X3, ROOM AIR, RESTLESS, HYPERVERBAL, AMBULATES WITH WALKER, INDEPENDENT WITH ADLS, COOPERATIVE, WILL CONTINUE TO MONITOR.
[2020-10-23 20:31] VITALS: BP 142/80
[2020-10-23] MEDS: OLANZAPINE 10 MG TABLET PO SCH (21:29)
[2020-10-24 08:00] VITALS: BP 151/99
[2020-10-24] MEDS: DIVALPROEX SODIUM 250 MG TABLET.DR PO SCH ×3 (08:13→16:06)
[2020-10-24] MEDS: OLANZAPINE 5 MG TABLET PO SCH (08:14)
[2020-10-24 16:00] VITALS: BP 149/82
--- NOTE | 2020-10-24 18:35 | NUR ---
Pt. arrived in the unit via ambulance and transported via a gurney with belongings. Pt. admitted on 5150 for DTS and GD. Per hold, pt. overdosed on Seroquel, admitted having severe anxiety and having difficulty functioning. V/S taken and contraband done. Dr. Valadez made aware of the admission and with orders. Will endorse to the incoming shift for the completion of the admission. Addendum: 10/24/20 at 1840 by MEL VALENTINE RN Above documentation is not for this pt.
[2020-10-24 20:24] VITALS: BP 150/95
[2020-10-24] MEDS: OLANZAPINE 10 MG TABLET PO SCH (21:13)
[2020-10-25] MEDS: LORAZEPAM 0.5 MG TABLET PO PRN ×2 (01:40→16:01)
--- NOTE | 2020-10-25 01:40 | NUR ---
RN NOTES: ANXIETY PT. C/O FEELING ANXIOUS, PARANOID,HYPERVERBAL , ATIVAN 0.5 MG PO PRN GIVEN PER PT. REQUEST, WILL CONTINUE TO MONITOR.
--- NOTE | 2020-10-25 02:00 | NUR ---
RN NOTE PATIENT IS HYPERVERBAL, LABILE, CONFUSED, DISORGANIZED, UNABLE TO SLEEP, PACING IN & OUT OF HER ROOM AT TIMES. OFFERED RESTORIL PRN MULTIPLE TIMES BUT PATIENT CONTINUED TO REFUSE. PATIENT AGREED TO TAKE ATIVAN INSTEAD & ATIVAN WAS GIVEN ORDERED. WILL CONTINUE TO MONITOR.
[2020-10-25 08:00] VITALS: BP 136/79
[2020-10-25] MEDS: OLANZAPINE 5 MG TABLET PO SCH (09:06)
[2020-10-25] MEDS: DIVALPROEX SODIUM 250 MG TABLET.DR PO SCH ×3 (09:06→16:01)
[2020-10-25 16:00] VITALS: BP 152/89
--- NOTE | 2020-10-25 16:01 | NUR ---
RN-CO: ATIVAN 0.5 MG PO GIVEN FOR RESTLESSNESS.
[2020-10-25 20:05] VITALS: BP 159/95
[2020-10-25 20:55] VITALS: BP 159/95
[2020-10-25] MEDS: OLANZAPINE 10 MG TABLET PO SCH (21:19)
[2020-10-25 21:40] VITALS: BP 146/87
[2020-10-25] MEDS: DIVALPROEX SODIUM 500 MG TABLET.DR PO SCH (22:07)
--- NOTE | 2020-10-26 01:11 | NUR ---
RN NOTE: PAIN PATIENT C/O LOWER BACK PAIN 07/01, REFUSED TO TAKE TYLENOL & WANTED TO TAKE IBUPROFEN ONLY. ALETHEA MAN WAS NOTIFIED BY CHARGE NURSE & RECEIVED NEW ORDER. NOTED & CARRIED OUT. PRN IBUPROFEN 600 MG 1 TAB PO ADMINISTERED. WILL CONTINUE TO MONITOR.
[2020-10-26] MEDS ORDERED: IBUPROFEN 600 MG TABLET PO PRN (01:30)
--- NOTE | 2020-10-26 02:16 | NUR ---
RN NOTE PATIENT IS AWAKE & UNABLE TO SLEEP A THIS TIME, HYPERVERBAL, LABILE, PACES IN THE HALLWAY, VERBALLY ABUSIVE TOWARDS STAFF AT TIMES, GRANDIOSE, STATED," I AM THE [place] OF [place]. I AM BEAUTIFUL, PEOPLE ARE JEALOUS OF ME. I CAN WRITE A NOTE TO YOUR WORKERS' COMPENSATION MAGISTRATE ABOUT YOUR PERFORMANCE SO YOU CAN GET GOOD RAISE." DELUSIONAL, SUSPICIOUS, BLAMING OTHER STAFF, PARANOID. OFFERED RESTORIL & ATIVAN AT SEPARATE TIMES BUT PATIENT CONTINUED TO REFUSE TO TAKE IT. PATIENT KEPT REPEATING TO THE NURSE," YOU GAVE ME TYLENOL LAST NIGHT, I PUKED IT OUT, I AM ALLERGIC TO TYLENOL, YOU WANTED TO KILL ME." THERE WAS NO TYLENOL GIVEN TO THE PATIENT LAST NIGHT. REDIRECTED THE PATIENT BACK TO HER ROOM GENTLY, GAVE SOME SPACE TO THE PATIENT TO CALM DOWN, OFFERED SNACKS & FLUIDS, TOLERATING WELL. PATIENT IS NOTED TO BE CALM, QUIET & RELAXED AT THIS TIME. WILL CONTINUE TO MONITOR PATIENT'S BEHAVIOR.
--- NOTE | 2020-10-26 06:09 | NUR ---
RN NOTE PATIENT IS CALM & RELAXED & REDIRECTABLE AT THIS TIME. WILL CONTINUE TO MONITOR.
[2020-10-26 08:00] VITALS: BP 145/95
[2020-10-26] MEDS: DIVALPROEX SODIUM 250 MG TABLET.DR PO SCH ×2 (08:36→12:29)
[2020-10-26] MEDS: OLANZAPINE 5 MG TABLET PO SCH (08:36)
--- NOTE | 2020-10-26 09:00 | NUR ---
RN NOTE- PT IS HYPERVERBAL, AFFECT IS BRIGHT. PLEASANT AND COOPERATIVE WITH MEDS.CONFUSED FORGETFUL, CONSTANT REDIRECTION REQUIRED
[2020-10-26 16:00] VITALS: BP 129/91
[2020-10-26 20:00] VITALS: BP 150/85
[2020-10-26] MEDS: OLANZAPINE 10 MG TABLET PO SCH (23:00)
[2020-10-26] MEDS: DIVALPROEX SODIUM 500 MG TABLET.DR PO SCH (23:00)
[2020-10-27 08:00] VITALS: BP 144/75
[2020-10-27] MEDS: DIVALPROEX SODIUM 250 MG TABLET.DR PO SCH ×2 (08:12→12:20)
[2020-10-27] MEDS: OLANZAPINE 5 MG TABLET PO SCH (08:12)
--- NOTE | 2020-10-27 09:00 | NUR ---
RN NOTE- FOCUS ON DC PLEASANT AND COOPERATIVE WITH MEDS.CONFUSED FORGETFUL, CONSTANT REDIRECTION REQUIRED
[2020-10-27 16:00] VITALS: BP 154/90
--- NOTE | 2020-10-27 17:45 | NUR ---
RN NOTE- PT DISCHARGED AT THIS TIME VIA [facility] TO HER HOME. PT IS ALERT ORIENTED TO PERSON PLACE PURPOSE, VS STABLE, DENIES SI HI AH VH, SHE IS CALM DIRECTABLE AND MED COMPLIANT. DC PLAN REVIEWED W PT AND SHE VERBALIZED UNDERSTANDING. ID [id number] REMOVED, VALUABLES RETURNED. SKIN INTACT. ESCORTED TO [facility] BY STAFF.
== END 2020-10-27 17:50 | disposition home or self-care (01) | DRG 885 ==
LOC: GPS 03:57
PROVIDERS: ADMIT Psychiatry & Neurology Psychiatry; ATTEND Family Medicine
DX: F31.64 Bipolar disorder, current episode mixed, severe, with psychotic features (principal); F23 Brief psychotic disorder; F41.9 Anxiety disorder, unspecified; D25.9 Leiomyoma of uterus, unspecified; E78.5 Hyperlipidemia, unspecified; F17.210 Nicotine dependence, cigarettes, uncomplicated; I10 Essential (primary) hypertension; Z73.6 Limitation of activities due to disability
CPT/HCPCS: 36415; 80053-TC; 80061-TC; 80164-TC; 82962-TC; 87081-TC